=== PATIENT | female | born 1990 ===

== ENCOUNTER 2019-03-09 06:46 | Outpatient (CLI) | payer BC ==
--- NOTE | 2019-03-09 08:32 | ULT ---
TRANSVAGINAL PELVIC ULTRASOUND WITH TALAMANTES SCALE AND COLOR FLOW AND SPECTRAL DOPPLER IMAGING: Date: 03/09/19 HISTORY: Amenorrhea. FINDINGS: The uterus measures 7.8 x 3.4 x 3.9 cm. A single intrauterine gestation is seen with measurements cor responding to an estimated gestational age of 5 weeks/2 days. No yolk sac or pole identified. N o heart tones are noted. There is a small amount of fluid within the endometrium at the lower u terine segment. Both ovaries have a normal appearance and demonstrate flow. IMPRESSION: Single intrauterine gestation. Estimated gestational age of 5 weeks/2 days. No yolk sac, pole, or heart tones are identified. Recommend correlation with serial serum beta HCG levels and follow-up ultrasound. POS: [facility]
== END 2019-03-09 06:47 | disposition home or self-care (01) ==
LOC: BICULT 06:46
PROVIDERS: ATTEND Family Medicine
DX: O99.89 Other specified diseases and conditions complicating pregnancy, childbirth and the puerperium (principal); N91.2 Amenorrhea, unspecified; Z3A.01 Less than 8 weeks gestation of pregnancy
CPT/HCPCS: 76856